=== PATIENT | female | born 1975 | race Caucasian/White ===

== ENCOUNTER 2019-07-13 08:03 | Day surgery (SDC) | payer OTHER ==
[~2019-07-13 08:03] MED LIST: FENTANYL CITR 250 MCG/5 ML ONE; LIDOCAINE 1% MPF 5 ML VIAL ONE; MIDAZOLAM HCL 2 MG/2 ML INJ ONE; NS 0.9% VIAL 0 ML ONE; ONDANSETRON 4 MG/2 ML VIAL ONE; VECURONIUM 10 MG/VIAL IV ONE; dexAMETHasone 10 MG/ML VIAL ONE; propofoL 200 MG/20 ML VIAL IV ONE
[2019-07-13 08:12] LABS: Specific Gravity 1.025 (1.005-1.030); Urine Appearance CLEAR; Urine Bilirubin NEGATIVE (NEG); Urine Blood TRACE (NEG); Urine Color YELLOW; Urine Glucose NEGATIVE (NEG); Urine Protein NEGATIVE (NEG); Urine Specific Gravity 1.025 (1.005-1.030); Urine Urobilinogen 0.2 mg/dL (0.2-1.0); Urine pH 5.5 (5.0-7.0)
[2019-07-13 08:14] LABS: Urine Microscopic Reflex ORDER UMIC
[2019-07-13] MEDS ORDERED: SCOPOLAMINE HYDROBROMIDE PATCH TD ONE ×2 (08:19→08:30)
[2019-07-13] MEDS ORDERED: Ringers Lactate 1,000 ML IV ONE ×3 (08:19→08:32)
[2019-07-13] MEDS ORDERED: CEFAZOLIN/SWI 1gm 0 GM/0 ML SYR ONE (08:19)
[2019-07-13] MEDS ORDERED: NS 0.9% VIAL 40 ML ONE (08:30)
[2019-07-13] MEDS ORDERED: CEFAZOLIN SODIUM 1 GM/VIAL ONE (08:30)
[2019-07-13] MEDS ORDERED: LIDOCAINE 1% W/EPI 1:100,000 MDV 20 ML VIAL ONE (08:31)
[2019-07-13] MEDS ORDERED: Mastisol Adhesive Liq ONE (08:31)
[2019-07-13] MEDS ORDERED: GENTAMICIN SULF 80 MG/2ML INJ ONE (08:31)
[2019-07-13] MEDS ORDERED: BACITRACIN 50000 UNIT VIAL ONE (08:32)
[2019-07-13 09:01] LABS: Urine Bacteria <20 /HPF (<20); Urine Culture Reflex Order NOT NEEDED; Urine Mucus 1+ /HPF (NONE SEEN); Urine RBC <5 /HPF (NONE SEEN)
[2019-07-13] MEDS ORDERED: CIPROFLOXACIN 400mg IV 400 MG/200 ML BAG IV ONE (09:10)
[2019-07-13] MEDS ORDERED: NS 0.9% VIAL 10 ML ONE ×2 (10:52→12:10)
[2019-07-13] MEDS ORDERED: EPHEDRINE SULF 50 MG/ML VIAL ONE (10:52)
[2019-07-13] MEDS ORDERED: VECURONIUM 10 MG/VIAL IV ONE ×2 (12:07)
[2019-07-13] MEDS ORDERED: FENTANYL CITR 100 MCG/2 ML ONE (12:26)
[2019-07-13] MEDS ORDERED: GLYCOPYRROLATE 0.2 MG/ML SYR ONE (12:55)
[2019-07-13] MEDS ORDERED: NEOSTIGMINE 1 MG/ML -5 ML ONE (12:55)
[2019-07-13] MEDS ORDERED: ONDANSETRON 4 MG/2 ML VIAL ONE (12:55)
[2019-07-13] MEDS ORDERED: KETOROLAC 30 MG/ML INJ ONE (12:55)
[2019-07-13] MEDS ORDERED: MEPERIDINE HCL 25 MG/0.5 ML ONE (13:25)
[2019-07-13 15:33] VITALS: O2SAT 99
[2019-07-13] MEDS ORDERED: CODEINE 30MG/APAP 300MG TAB ONE (16:18)
[2019-07-13 16:39] VITALS: TEMP 99.8
[2019-07-13 17:34] VITALS: BP 108/71
--- NOTE | 2019-07-14 08:52 | OP ---
Surgeon: Daniel Nieves MD Bleach Maker: Pawel. Preoperative Diagnosis: Breast descent status post augmentation. Postoperative Diagnosis: Breast descent status post augmentation. Procedure Performed: Explant lift. Anesthesia: General. Procedure In Detail: After satisfactory induction of general anesthesia, chest was prepped with Dura Prep and dry sterile drapes applied in the usual manner. A 42 template was used to outline the right and left areolas. Then, a transverse curvilinear incisions were made. The intervening skin was de- epithelialized with dermabrader and EpiCut. Both sides were simultaneously, flap thicknes s was approximately 1 cm. Straps were elevated toward the sternum, clavicle, anterior axillary line on both sides. Then the inferior incision was made. The implant was removed retropectoral on the ri ght side and laterally on the left side. The implant saline with smooth implan t. Then the patient had conization performed starting on the right side with 2-0 PDS sutu res. Straps were elevated at 12 o'clock, 1:30 and 3 o'clock position. The straps were then woven in and out of pectoralis muscle back to the base of cone, back to pectoralis muscle, back to base of co ne, tied themselves with 2-0 PDS sutures. This was done for 12 o'clock, 130 straps. The 3 o'clock s trap was sewn over the sternum with 2-0 Ethibond sutures. Left side was done in the mirror-image man ner. The patient's wounds were stapled shut. The patient was sat up and the dog-ears were marked ou t. The patient was placed supine and excess skin were excised. A 10 MAKEDA brought out the a xilla after wound was irrigated with antibiotic solution. A 10 MAKEDA was sewn in place with 2-0 silk. The wound was closed with 4-0 PDS medial to lateral and then 3-0 PDS after 3-0 Vicryl were placed on the lateral portion. Left side was done in the mirror-image manner. After wound closure was obtained, the patient was sat up. Site for new nipple-areolar complex was marked out. A 42 temp late was used, tissue cored out, nipple was delivered, sewn with interrupted 4-0 PDS followed by 4-0 PDS running subcuticular. Dressings of tincture of benzoin, Steri-Strips, 5 x 5's, fluffs and Jadon wr ap. The patient tolerated the procedure well and returned to the Recovery. JESSICA/KHADRA Voice ID: [id number] Report ID: [id number]
== END 2019-07-13 17:50 | disposition home or self-care (01) ==
LOC: OR 08:03
PROVIDERS: ATTEND Specialist
PROC: 0HPU0JZ Removal of Synthetic Substitute from Left Breast, Open Approach (ICD-10-PCS; 2019-07-13)
PROC: 0HPT0JZ Removal of Synthetic Substitute from Right Breast, Open Approach (ICD-10-PCS; 2019-07-13)
PROC: 0H0V0ZZ Alteration of Bilateral Breast, Open Approach (ICD-10-PCS; principal; 2019-07-13 09:00)
DX: N64.81 Ptosis of breast (principal); Z45.812 Encounter for adjustment or removal of left breast implant; Z45.811 Encounter for adjustment or removal of right breast implant; Z88.0 Allergy status to penicillin; Z88.8 Allergy status to other drugs, medicaments and biological substances
CPT/HCPCS: 81025; 88305; 19316; 19328; J2704; J2250; J3010 ×2; J1100; J2175; J2710; J7120 ×3; J2405 ×2; J0744; 81003; 81015; J0690; J1580